=== PATIENT | male | born 1940 | race Caucasian/White ===

== ENCOUNTER 2017-09-05 14:55 | Emergency (ER) | payer MEDICARE, BC ==
[2017-09-05] MEDS ORDERED: EPINEPHrine 1 MG/ML SDV SUBCUT ONE (15:02)
[2017-09-05] MEDS ORDERED: methylPREDNISolone Sodium Succinate 125 MG/2 ML SDV IVPUSH ONE (15:03)
[2017-09-05] MEDS ORDERED: Sodium Chloride 0.9% 1,000 ML IV SCH (15:15)
--- NOTE | 2017-09-05 15:42 | EDM.PDOC ---
ED HPI GENERAL MEDICAL PROBLEM - General Chief Complaint: Allergic Reaction Stated Complaint: BEE STING/DIZZY Time Seen by Provider: 09/05/17 15:05 Source of Information: Reports: Patient, Family History Limitations: Reports: No Limitations - History of Present Illness INITIAL COMMENTS - FREE TEXT/NARRATIVE: pt arrived with swelling in the eyes, itching all over and feeling dizzy. He lost control of his bladder. He was stung by a bee on the lrft ear. He has never reacted in the past. Onset: Today, Sudden Duration: Hour(s): Location: Reports: Generalized Associated Symptoms: Reports: Other ( dizziness) - Related Data Allergies Allergy/AdvReac Type Severity Reaction Status Date / Time No Known Allergies Allergy Verified 09/05/17 15:07 Home Meds: Home Meds Allopurinol [Allopurinol] 300 mg PO DAILY 08/30/13 [History] Aspirin [Children's Aspirin] 81 mg PO DAILY 08/30/13 [History] Celecoxib [CeleBREX] 200 mg PO ASDIRECTED 08/30/13 [History] Hydrochlorothiazide 25 mg PO DAILY 08/30/13 [History] Lisinopril 40 mg PO DAILY 08/30/13 [History] Metoprolol Tartrate [Lopressor] 100 mg PO BID 08/30/13 [History] [place]-3 Fatty Acids [[place]-3] 1,000 mg PO BID 08/30/13 [History] Simvastatin [Simvastatin] 40 mg PO BEDTIME 08/30/13 [History] Tamsulosin HCl [Flomax] 0.4 mg PO BID 08/30/13 [History] metFORMIN [Glucophage] 1,000 mg PO BID 08/30/13 [History] Finasteride [Proscar] 5 mg PO DAILY 02/23/15 [History] amLODIPine [Norvasc] 10 mg PO DAILY 02/23/15 [History] Past Medical History HEENT History: Reports: Cataract Cardiovascular History: Reports: Hypertension Endocrine/Metabolic History: Reports: Diabetes, Type II - Past Surgical History HEENT Surgical History: Reports: Cataract Surgery Cardiovascular Surgical History: Reports: Coronary Artery Stent Musculoskeletal Surgical History: Reports: Hip Replacement Social & Family History - Tobacco Use Smoking Status *Q: Former Smoker Years of Tobacco use: 20 Used Tobacco, but Quit: Yes Month Tobacco Last Used: 0 Second Hand Smoke Exposure: No - Alcohol Use Days Per Week of Alcohol Use: 0 - Recreational Drug Use Recreational Drug Use: No ED ROS ALLERGIC REACTION - Review of Systems Review Of Systems: See Below Constitutional: Reports: No Symptoms HEENT: Reports: No Symptoms Respiratory: Reports: Shortness of Breath Cardiovascular: Reports: Palpitations Endocrine: Reports: No Symptoms GI/Abdominal: Reports: No Symptoms : Reports: No Symptoms, Other ( pt did loose control of his bladder. ) Musculoskeletal: Reports: No Symptoms Skin: Reports: Other (pt was itching all over. And he did have a rash. ) Neurological: Reports: Dizziness ED EXAM GENERAL NO PERIP PULSE - Physical Exam Exam: See Below Text/Narrative:: pt was dizzy and felt like he was going to pass out. Exam Limited By: No Limitations General Appearance: Alert, Anxious, Mild Distress Ears: Normal TMs Nose: Normal Inspection, Other (pt did have alot of aswelling around his eyes. ) Throat/Mouth: Normal Inspection Head: Atraumatic Neck: Normal Inspection Respiratory/Chest: No Respiratory Distress Cardiovascular: Regular Rate, Rhythm GI/Abdominal: Soft (Male) Exam: Deferred Rectal (Males) Exam: Deferred Extremities: Normal Inspection Neurological: Alert, Oriented Skin Exam: Other (pt is very itchy and has a fine rash present.) Course - Vital Signs Last Recorded V/S: Last Vital Signs Temp 36.0 C 09/05/17 15:05 Pulse 52 L 09/05/17 15:05 Resp 18 09/05/17 15:05 BP 166/74 H 09/05/17 15:05 Pulse Ox 90 L 09/05/17 15:05 - Orders/Labs/Meds Orders: Active Orders 24 hr Category Date Time Status Sodium Chloride 0.9% [Normal Saline] 1,000 ml Med 09/05/17 15:15 Active IV ASDIRECTED Medication Orders Sodium Chloride (Normal Saline) 1,000 mls @ 600 mls/hr IV ASDIRECTED ZACH Last Admin: 09/05/17 15:10 Dose: 600 mls/hr Meds: Medications Generic Name Dose Route Start Last Admin Trade Name Freq PRN Reason Stop Dose Admin Sodium Chloride 1,000 mls @ 600 mls/hr 09/05/17 15:15 09/05/17 15:10 Normal Saline IV 600 mls/hr ASDIRECTED ZACH Administration Discontinued Medications Generic Name Dose Route Start Last Admin Trade Name Freq PRN Reason Stop Dose Admin Epinephrine HCl 0.2 mg 09/05/17 15:02 09/05/17 15:07 Adrenalin 1:1000 SUBCUT 09/05/17 15:03 0.2 mg ONETIME ONE Administration Methylprednisolone Sodium Succinate 125 mg 09/05/17 15:03 09/05/17 15:10 Solu-Medrol IVPUSH 09/05/17 15:04 125 mg ONETIME ONE Administration - Re-Assessments/Exams Free Text/Narrative Re-Assessment/Exam: 09/05/17 15:50 Pt was given epi, and solumedrol, He did have benadryl at home. Departure - Departure Time of Disposition: 15:51 Disposition: Home, Self-Care 01 Condition: Fair Clinical Impression: Allergic reaction - Discharge Information Referrals: Sonido Gilmore MD [Primary Care Provider] - Forms: ED Department Discharge Care Plan Goals: use benadryl 50 mg for 2 more doses. epipen in the event of another sting. - My Orders Last 24 Hours: My Active Orders 09/05/17 15:15 Sodium Chloride 0.9% [Normal Saline] 1,000 ml IV ASDIRECTED - Assessment/Plan Last 24 Hours: My Active Orders 09/05/17 15:15 Sodium Chloride 0.9% [Normal Saline] 1,000 ml IV ASDIRECTED
[2017-09-05 16:38] VITALS: BP 170/80
== END 2017-09-05 16:35 | disposition home or self-care (01) ==
LOC: JP.ED 14:55
DX: T63.441A Toxic effect of venom of bees, accidental (unintentional), initial encounter (principal); I10 Essential (primary) hypertension; E11.9 Type 2 diabetes mellitus without complications; Z98.49 Cataract extraction status, unspecified eye; Z95.5 Presence of coronary angioplasty implant and graft; Z96.649 Presence of unspecified artificial hip joint; Z79.84 Long term (current) use of oral hypoglycemic drugs; Z79.899 Other long term (current) drug therapy; Z79.82 Long term (current) use of aspirin
CPT/HCPCS: 96361; 96372; 96374; 99284; J0171; J2930; J7040; 99283

== ENCOUNTER 2020-03-30 14:20 | Emergency (ER) | payer MEDICARE, BC ==
[2020-03-30] MEDS ORDERED: Sodium Chloride 0.9% 10 ML Syringe FLUSH PRN (14:41)
[2020-03-30] MEDS ORDERED: Aspirin 81 MG Tab.Chew PO ONE (14:41)
--- NOTE | 2020-03-30 14:44 | EDM.PDOC ---
ED HPI GENERAL MEDICAL PROBLEM - General Chief Complaint: Respiratory Problem Stated Complaint: SHORTNESS OF BREATH,COUGH,CHILLS Time Seen by Provider: 03/30/20 14:41 Source of Information: Reports: Patient, RN Notes Reviewed History Limitations: Reports: No Limitations - History of Present Illness INITIAL COMMENTS - FREE TEXT/NARRATIVE: 79-year-old gentleman presents emergency department a complaint of shortness of breath, he states this morning he started getting more more short of breath than usual he denies any chest pain no fevers no nausea vomiting no diaphoresis he does take a water pill however states he is never had any cardiovascular problems denies any recent weight gain Headache Pain Score (Numeric/FACES): 3 - Related Data Allergies Allergy/AdvReac Type Severity Reaction Status Date / Time No Known Allergies Allergy Verified 03/30/20 14:25 Home Meds: Home Meds Aspirin [Children's Aspirin] 81 mg PO DAILY 08/30/13 [History] [place]-3 Fatty Acids [[place]-3] 1,000 mg PO BID 08/30/13 [History] Simvastatin 20 mg PO BEDTIME 08/30/13 [History] allopurinoL [Allopurinol] 300 mg PO DAILY 08/30/13 [History] amLODIPine [Norvasc] 10 mg PO DAILY 02/23/15 [History] Torsemide 10 mg PO DAILY 03/30/20 [History] carvediloL [Coreg] 25 mg PO DAILY 03/30/20 [History] glipiZIDE [Glucotrol] 5 mg PO ACBREAKFAST 03/30/20 [History] hydrALAZINE [Apresoline] 25 mg PO BID 03/30/20 [History] traMADol [Ultram] 50 mg pe PO Q6H PRN 03/30/20 [History] Past Medical History HEENT History: Reports: Cataract Cardiovascular History: Reports: Hypertension Endocrine/Metabolic History: Reports: Diabetes, Type II - Past Surgical History HEENT Surgical History: Reports: Cataract Surgery Cardiovascular Surgical History: Reports: Coronary Artery Stent Endocrine Surgical History: Reports: None Musculoskeletal Surgical History: Reports: Hip Replacement Dermatological Surgical History: Reports: None Social & Family History - Tobacco Use Smoking Status *Q: Former Smoker Years of Tobacco use: 20 Packs/Tins Daily: 1 Used Tobacco, but Quit: Yes Month/Year Tobacco Last Used: april 1990 - Caffeine Use Caffeine Use: Reports: Coffee, Soda - Recreational Drug Use Recreational Drug Use: No ED ROS GENERAL - Review of Systems Review Of Systems: See Below Constitutional: Reports: No Symptoms. Denies: Weight Gain HEENT: Reports: No Symptoms Respiratory: Reports: Shortness of Breath Cardiovascular: Reports: Dyspnea on Exertion. Denies: Chest Pain, Palpitations GI/Abdominal: Reports: No Symptoms : Reports: No Symptoms Musculoskeletal: Reports: No Symptoms ED EXAM, GENERAL - Physical Exam Exam: See Below Exam Limited By: No Limitations General Appearance: Alert, WD/WN, No Apparent Distress Respiratory/Chest: No Respiratory Distress, Lungs Clear, No Accessory Muscle Use , Chest Non-Tender, Crackles (Faint crackles in the bases) Cardiovascular: Regular Rate, Rhythm, No Murmur GI/Abdominal: Soft, Non-Tender Course - Vital Signs Last Recorded V/S: Last Vital Signs Temp 96.1 F L 03/30/20 14:23 Pulse 53 L 03/30/20 16:19 Resp 23 H 03/30/20 16:19 BP 184/82 H 03/30/20 16:19 Pulse Ox 95 03/30/20 16:19 - Orders/Labs/Meds Orders: Active Orders 24 hr Category Date Time Status Cardiac Monitoring [RC] .As Directed Care 03/30/20 14:42 Active EKG Documentation Completion [RC] ASDIRECTED Care 03/30/20 14:42 Active Peripheral IV Care [RC] . DIRECTED Care 03/30/20 14:42 Active Chest 1V Frontal [CR] Stat Exams 03/30/20 14:42 Taken Nitroglycerin [Nitrostat] Med 03/30/20 14:41 Active 0.4 mg SL Q5M PRN Sodium Chloride 0.9% [Saline Flush] Med 03/30/20 14:41 Active 10 ml FLUSH ASDIRECTED PRN Peripheral IV Insertion Adult [OM.PC] Stat Oth 03/30/20 14:41 Ordered Saline Lock Insert [OM.PC] Stat Oth 03/30/20 14:41 Ordered EKG 12 Lead [EK] Stat Ther 03/30/20 14:42 Ordered Medication Orders Nitroglycerin (Nitrostat) 0.4 mg SL Q5M PRN PRN Reason: Chest Pain Stop: 03/31/20 14:42 Last Admin: 03/30/20 16:02 Dose: 0.4 mg Admin: 03/30/20 14:51 Dose: 0.4 mg Sodium Chloride (Saline Flush) 10 ml FLUSH ASDIRECTED PRN PRN Reason: Keep Vein Open Last Admin: 03/30/20 15:05 Dose: 10 ml Labs: Laboratory Tests 03/30/20 03/30/20 03/30/20 Range/Units 14:50 14:50 14:50 WBC 5.6 (4.5-11.0) K/uL RBC 3.88 L (4.30-5.90) M/uL Hgb 11.5 L (12.0-15.0) g/dL Hct 37.6 L (40.0-54.0) % MCV 97 (80-98) fL MCH 30 (27-31) pg MCHC 31 L (32-36) % Plt Count 194 (150-400) K/uL Neut % (Auto) 60 (36-66) % Lymph % (Auto) 28 (24-44) % Donley % (Auto) 8 H (2-6) % Eos % (Auto) 3 (2-4) % Baso % (Auto) 0 (0-1) % D-Dimer, Quantitative (0.0-400.0) ng/mL Sodium 145 (140-148) mmol/L Potassium 3.9 (3.6-5.2) mmol/L Chloride 110 H (100-108) mmol/L Carbon Dioxide 26 (21-32) mmol/L Anion Gap 12.9 (5.0-14.0) mmol/L BUN 27 H (7-18) mg/dL Creatinine 2.3 H (0.8-1.3) mg/dL Est Cr Clr Drug Dosing 26.01 mL/min Estimated GFR (MDRD) 27 L (>60) Glucose 122 H (74-106) mg/dL Lactic Acid 0.7 (0.4-2.0) mmol/L Calcium 9.1 (8.5-10.1) mg/dL Total Bilirubin 0.5 (0.2-1.0) mg/dL AST 14 L (15-37) U/L ALT 29 (12-78) U/L Alkaline Phosphatase 81 (46-116) U/L Troponin I < 0.017 (0.000-0.056) ng/mL NT-Pro-B Natriuret Pep 1894 H (5-450) pg/mL Total Protein 6.5 (6.4-8.2) g/dL Albumin 3.1 L (3.4-5.0) g/dL Globulin 3.4 (2.3-3.5) g/dL Albumin/Globulin Ratio 0.9 L (1.2-2.2) 03/30/20 Range/Units 15:09 WBC (4.5-11.0) K/uL RBC (4.30-5.90) M/uL Hgb (12.0-15.0) g/dL Hct (40.0-54.0) % MCV (80-98) fL MCH (27-31) pg MCHC (32-36) % Plt Count (150-400) K/uL Neut % (Auto) (36-66) % Lymph % (Auto) (24-44) % Donley % (Auto) (2-6) % Eos % (Auto) (2-4) % Baso % (Auto) (0-1) % D-Dimer, Quantitative 723 H (0.0-400.0) ng/mL Sodium (140-148) mmol/L Potassium (3.6-5.2) mmol/L Chloride (100-108) mmol/L Carbon Dioxide (21-32) mmol/L Anion Gap (5.0-14.0) mmol/L BUN (7-18) mg/dL Creatinine (0.8-1.3) mg/dL Est Cr Clr Drug Dosing mL/min Estimated GFR (MDRD) (>60) Glucose (74-106) mg/dL Lactic Acid (0.4-2.0) mmol/L Calcium (8.5-10.1) mg/dL Total Bilirubin (0.2-1.0) mg/dL AST (15-37) U/L ALT (12-78) U/L Alkaline Phosphatase (46-116) U/L Troponin I (0.000-0.056) ng/mL NT-Pro-B Natriuret Pep (5-450) pg/mL Total Protein (6.4-8.2) g/dL Albumin (3.4-5.0) g/dL Globulin (2.3-3.5) g/dL Albumin/Globulin Ratio (1.2-2.2) Meds: Medications Generic Name Dose Route Start Last Admin Trade Name Freq PRN Reason Stop Dose Admin Nitroglycerin 0.4 mg 03/30/20 14:41 03/30/20 16:02 Nitrostat SL 03/31/20 14:42 0.4 mg Q5M PRN Administration Chest Pain Sodium Chloride 10 ml 03/30/20 14:41 03/30/20 15:05 Saline Flush FLUSH 10 ml ASDIRECTED PRN Administration Keep Vein Open Discontinued Medications Generic Name Dose Route Start Last Admin Trade Name Freq PRN Reason Stop Dose Admin Aspirin 324 mg 03/30/20 14:41 03/30/20 14:49 Aspirin PO 03/30/20 14:42 324 mg ONETIME ONE Administration Furosemide 40 mg 03/30/20 15:54 03/30/20 16:04 Lasix IVPUSH 03/30/20 15:55 40 mg ONETIME ONE Administration Departure - Departure Time of Disposition: 17:29 Disposition: Home, Self-Care 01 Condition: Fair Clinical Impression: Congestive heart failure Qualifiers: Heart failure type: unspecified Heart failure chronicity: acute on chronic Qualified Code(s): I50.9 - Heart failure, unspecified - Discharge Information Instructions: Heart Failure, [id number] Referrals: Sonido Gilmore MD [Primary Care Provider] - Forms: ED Department Discharge Additional Instructions: Restart your torsemide once a day, please follow-up with your primary care provider in the next 2 to 3 days for reevaluation recommend doing daily weights increase your furosemide to twice a day with a 3 pound weight gain, return to once a day when you reach baseline weight Sepsis Event Note - Evaluation Sepsis Screening Result: No Definite Risk - Focused Exam Vital Signs: Vital Signs Temp Pulse Resp BP BP Pulse Ox 03/30/20 16:19 53 L 23 H 184/82 H 95 03/30/20 16:09 55 L 23 H 163/84 H 95 03/30/20 16:02 205/92 H 03/30/20 15:06 56 L 153/96 H 03/30/20 15:00 209/98 H 03/30/20 14:55 179/96 H 03/30/20 14:51 191/95 H 03/30/20 14:49 56 L 191/95 H 05/11/20 14:23 96.1 F L 56 L 24 H 209/92 H 96 Date Exam was Performed: 03/30/20 Time Exam was Performed: 17:27 - My Orders Last 24 Hours: My Active Orders 03/30/20 14:41 Nitroglycerin [Nitrostat] 0.4 mg SL Q5M PRN Sodium Chloride 0.9% [Saline Flush] 10 ml FLUSH ASDIRECTED PRN Peripheral IV Insertion Adult [OM.PC] Stat Saline Lock Insert [OM.PC] Stat 03/30/20 14:42 Cardiac Monitoring [RC] .As Directed EKG Documentation Completion [RC] ASDIRECTED Peripheral IV Care [RC] . DIRECTED Chest 1V Frontal [CR] Stat EKG 12 Lead [EK] Stat - Assessment/Plan Last 24 Hours: My Active Orders 03/30/20 14:41 Nitroglycerin [Nitrostat] 0.4 mg SL Q5M PRN Sodium Chloride 0.9% [Saline Flush] 10 ml FLUSH ASDIRECTED PRN Peripheral IV Insertion Adult [OM.PC] Stat Saline Lock Insert [OM.PC] Stat 03/30/20 14:42 Cardiac Monitoring [RC] .As Directed EKG Documentation Completion [RC] ASDIRECTED Peripheral IV Care [RC] . DIRECTED Chest 1V Frontal [CR] Stat EKG 12 Lead [EK] Stat Plan: Assessment Acuity = acute Site and laterality = acute exacerbation congestive heart failure Etiology = reduction in furosemide every 48 hours Manifestations = dyspnea now improved Location of injury = Home Lab values = CBC unremarkable d-dimer slightly elevated 723 of unclear significance creatinine elevated 2.3 consistent chronic renal failure stage G4 lactic acid normal 0.7 troponin was negative BNP slightly elevated 1894 chest x- ray consistent with congestive heart failure type pattern Plan He had good improvement with nitro and Lasix provided in the ED plan is to do daily weights he is going to return to his torsemide once a day follow-up with primary care in 2 to 3 days for reevaluation, risks benefits and alternatives were discussed with him This note was dictated using [employer] voice recognition software please call with any questions on syntax or grammar.
[2020-03-30] MEDS: Nitroglycerin 0.4 MG Tab.SL SL PRN ×2 (14:51→16:02)
[2020-03-30] MEDS ORDERED: Furosemide 40 MG/4 ML VIAL IVPUSH ONE (15:54)
[2020-03-30 16:27] VITALS: BP 184/82; PULSE 53
--- NOTE | 2020-03-31 11:45 | CR ---
CHEST: Portable 03/30/2020 at 3:40 PM CLINICAL HISTORY:Chest pain COMPARISON:CT 2008 FINDINGS: Heart is moderately enlarged and has increased since the 2008 study. Pulmonary vascular areas cephalized. There is dominant. Hilar lung markings. There is a minimal right effusion. There are atherosclerotic changes in the aorta. Impression: 30 megaly with vascular cephalization and mild generalized interstitial prominence suggest CHF Minimal right effusion Upright two-view chest recommended when patient's condition allows.
== END 2020-03-30 17:47 | disposition home or self-care (01) ==
LOC: JP.ED 14:20
DX: I11.0 Hypertensive heart disease with heart failure (principal); I50.9 Heart failure, unspecified; E11.9 Type 2 diabetes mellitus without complications; Z79.82 Long term (current) use of aspirin; Z79.899 Other long term (current) drug therapy; Z79.84 Long term (current) use of oral hypoglycemic drugs
CPT/HCPCS: 36415; 71045; 80053; 83605; 83880; 84484; 85025; 85379; 93005; 93010; 96374; 99284; 99285; A9270; J1940

== ENCOUNTER 2022-02-24 02:42 | Emergency (ER) | payer MEDICARE, BC ==
[2022-02-24 02:58] VITALS: BP 183/79; PULSE 70
[2022-02-24] MEDS ORDERED: Lidocaine 2% Jelly 10 ML Urojet MUCMEM ONE (03:10)
[2022-02-24] MEDS ORDERED: Lidocaine 2% Jelly 10 ML Urojet ONE (03:12)
== END 2022-02-24 04:24 | disposition home or self-care (01) ==
LOC: JP.ED 02:42
DX: R33.9 Retention of urine, unspecified (principal); I10 Essential (primary) hypertension; E11.9 Type 2 diabetes mellitus without complications; Z79.82 Long term (current) use of aspirin; Z79.899 Other long term (current) drug therapy; Z79.4 Long term (current) use of insulin
CPT/HCPCS: 51702; 81001; 99282; 99283-25

== ENCOUNTER 2022-02-25 16:49 | Emergency (ER) | payer MEDICARE, BC ==
[2022-02-25 16:59] VITALS: BP 168/63; PULSE 51
== END 2022-02-25 17:24 | disposition home or self-care (01) ==
LOC: JP.ED 16:49
DX: T83.018A Breakdown (mechanical) of other urinary catheter, initial encounter (principal); E11.9 Type 2 diabetes mellitus without complications; I10 Essential (primary) hypertension; Z95.5 Presence of coronary angioplasty implant and graft; Z79.82 Long term (current) use of aspirin; Z79.899 Other long term (current) drug therapy; Z79.4 Long term (current) use of insulin
CPT/HCPCS: 99282; 99283

== ENCOUNTER 2022-04-04 08:16 | Emergency (ER) | payer MEDICARE, BC ==
[2022-04-04 08:36] VITALS: BP 190/75; PULSE 52
[2022-04-04] MEDS ORDERED: Ketorolac 30 MG/ML SDV IM ONE (08:52)
== END 2022-04-04 10:50 | disposition home or self-care (01) ==
LOC: JP.ED 08:16
DX: M25.551 Pain in right hip (principal); I10 Essential (primary) hypertension; E11.9 Type 2 diabetes mellitus without complications; Z79.82 Long term (current) use of aspirin; Z79.899 Other long term (current) drug therapy; Z79.4 Long term (current) use of insulin; Z95.5 Presence of coronary angioplasty implant and graft
CPT/HCPCS: 73502-26-RT; 73502-RT; 96372; 99282; 99283; J1885

== ENCOUNTER 2023-02-23 10:35 | Emergency (ER) | payer OTHER, MEDICARE, BC ==
[2023-02-23 11:20] VITALS: BP 171/73; PULSE 67
[2023-02-23] MEDS ORDERED: Diphtheria,Pertussis(Acell),Tetanus Vaccine 0.5 ML Syringe IM ONE (11:33)
== END 2023-02-23 13:30 | disposition home or self-care (01) ==
LOC: JP.ED 10:35
DX: S12.191A Other nondisplaced fracture of second cervical vertebra, initial encounter for closed fracture (principal); S00.01XA Abrasion of scalp, initial encounter; I10 Essential (primary) hypertension; E11.9 Type 2 diabetes mellitus without complications; Z23 Encounter for immunization; Z79.82 Long term (current) use of aspirin; Z79.84 Long term (current) use of oral hypoglycemic drugs; Z79.899 Other long term (current) drug therapy; V89.2XXA Person injured in unspecified motor-vehicle accident, traffic, initial encounter; Y92.410 Unspecified street and highway as the place of occurrence of the external cause
CPT/HCPCS: 70450; 70450-26; 72125; 72125-26; 76377; 90471; 90715; 99283; 99284-25

== ENCOUNTER 2024-02-09 12:19 | Emergency (ER) | payer MEDICARE, BC ==
[2024-02-09 12:40] VITALS: BP 198/90; PULSE 73
[2024-02-09 13:01] LABS: BASOPHILS PERCENT AUTO 0.2 % (0.1-1.3); EOSINOPHILS ABSOLUTE AUTO 0.13 K/uL (0.00-0.40); EOSINOPHILS PERCENT AUTO 2.7 % (0.0-5.4); HEMATOCRIT 35.4 % (38.4-49.7); HEMOGLOBIN 11.4 g/dL (12.9-16.9); IMMATURE GRAN ABSOLUTE AUTO 0.03 K/uL (0.00-0.23); IMMATURE GRAN PERCENT AUTO 0.6 % (0.0-0.7); LYMPHOCYTES ABSOLUTE AUTO 0.96 K/uL (0.8-3.3); LYMPHOCYTES PERCENT AUTO 19.9 % (11.4-47.7); MEAN CORPUSCULAR HEMOGLOBIN 30.6 pg (31.6-35.5); MEAN CORPUSCULAR HGB CONC 32.2 g/dL (31.6-35.5); MEAN CORPUSCULAR VOLUME 95.2 fL (81.4-99.0); MONOCYTES ABSOLUTE AUTO 0.44 K/uL (0.20-0.90); MONOCYTES PERCENT AUTO 9.1 % (3.3-12.6); NEUTROPHILS ABSOLUTE AUTO 3.26 K/uL (1.0-7.6); NEUTROPHILS PERCENT AUTO 67.5 % (40.0-78.1); PLATELET COUNT,PLT 140 K/uL (130-375); RED BLOOD CELL COUNT 3.72 M/uL (4.14-5.76); WHITE BLOOD CELL COUNT,WBC 4.8 K/uL (3.2-11.0)
[2024-02-09 13:03] LABS: BASOPHILS ABSOLUTE AUTO 0.01 K/uL (0.00-0.10)
[2024-02-09 13:15] LABS: EST CRCL DRUG DOSING (CG) 11.38 mL/min; POTASSIUM,K 3.5 mmol/L (3.6-5.2)
[2024-02-09 13:16] LABS: ANION GAP 13.5 mmol/L (5.0-14.0)
[2024-02-09 13:17] LABS: CREATININE 4.9 mg/dL (0.8-1.3)
== END 2024-02-09 14:31 | disposition home or self-care (01) ==
LOC: JP.ED 12:19
DX: R10.31 Right lower quadrant pain (principal); I10 Essential (primary) hypertension; E11.9 Type 2 diabetes mellitus without complications; Z79.82 Long term (current) use of aspirin; Z79.4 Long term (current) use of insulin; Z79.899 Other long term (current) drug therapy
CPT/HCPCS: 36415; 80048; 85025; 99284

== ENCOUNTER 2025-08-11 09:15 | Emergency (ER) | payer MEDICARE, BC ==
[2025-08-11 09:40] LABS: BASOPHILS ABSOLUTE AUTO 0.01 K/uL (0.00-0.10); BASOPHILS PERCENT AUTO 0.2 % (0.1-1.3); EOSINOPHILS ABSOLUTE AUTO 0.19 K/uL (0.00-0.40); EOSINOPHILS PERCENT AUTO 3.2 % (0.0-5.4); IMMATURE GRAN ABSOLUTE AUTO 0.03 K/uL (0.00-0.23); IMMATURE GRAN PERCENT AUTO 0.5 % (0.0-0.7); LYMPHOCYTES ABSOLUTE AUTO 1.26 K/uL (0.8-3.3); LYMPHOCYTES PERCENT AUTO 21.5 % (11.4-47.7); MONOCYTES ABSOLUTE AUTO 0.45 K/uL (0.20-0.90); MONOCYTES PERCENT AUTO 7.7 % (3.3-12.6); NEUTROPHILS ABSOLUTE AUTO 3.92 K/uL (1.0-7.6); NEUTROPHILS PERCENT AUTO 66.9 % (40.0-78.1); PLATELET COUNT,PLT 158 K/uL (130-375); RED BLOOD CELL COUNT 2.38 M/uL (4.14-5.76); WHITE BLOOD CELL COUNT,WBC 5.9 K/uL (3.2-11.0)
[2025-08-11 10:03] LABS: A/G RATIO 0.7 (1.2-2.2); ALANINE AMINOTRANSFERASE,ALT 17 U/L (12-78); ASPARTATE AMNIOTRANSFERASE,AST 7 U/L (15-37); BILIRUBIN TOTAL 0.4 mg/dL (0.2-1.0); BLOOD UREA NITROGEN,BUN 68 mg/dL (7-18); CARBON DIOXIDE,CO2 27 mmol/L (21-32); CHLORIDE,CL 100 mmol/L (100-108); EST CRCL DRUG DOSING (CG) 4.49 mL/min; ESTIMATED GFR 4 mL/min (>60); GLUCOSE RANDOM 69 mg/dL (74-106); POTASSIUM,K 4.5 mmol/L (3.6-5.2); PROTEIN TOTAL,TP 6.3 g/dL (6.4-8.2); SODIUM,NA 140 mmol/L (140-148); TROPONIN I HIGH SENSITIVITY 22.6 pg/mL (<=60.3)
[2025-08-11 10:09] LABS: CREATININE 12.2 mg/dL (0.8-1.3)
[2025-08-11] MEDS ORDERED: Sodium Chloride 0.9% 10 ML Syringe FLUSH PRN (10:15)
[2025-08-11 10:27] LABS: INR 3.4
[2025-08-11] MEDS: 50% Dextrose in Water 50 ML Syringe IVPUSH ONE (11:09)
[2025-08-11 11:15] VITALS: BP 139/72; PULSE 70
[2025-08-11] MEDS ORDERED: Dimethicone 20%/Zinc Oxide 25% 56 GM Spray Bottle TOP PRN (11:32)
== END 2025-08-11 11:56 | disposition home or self-care (01) ==
LOC: JP.ED 09:15
DX: E11.649 Type 2 diabetes mellitus with hypoglycemia without coma (principal); I10 Essential (primary) hypertension; Z79.82 Long term (current) use of aspirin; Z79.4 Long term (current) use of insulin; Z79.01 Long term (current) use of anticoagulants; Z79.899 Other long term (current) drug therapy; Z87.891 Personal history of nicotine dependence
CPT/HCPCS: 36415; 80053; 82947; 83605; 84484; 85025; 85610; 93005; 99285